=== PATIENT | female | born 1960 | race African-American/Black ===

== ENCOUNTER 2023-01-03 11:51 | Emergency (ER) | payer MEDICARE, MEDICAID, SELFPAY ==
--- NOTE | ~2023-01-03 | CT_ITS ---
EXAMINATION: CT brain wo con DATE: 01/03/2023 15:12 INDICATION: Left-sided numbness. Headache. TECHNIQUE: Computed tomography (CT) of the head was performed without intravenous contrast. The mA wa s adjusted according to patient size. Iterative reconstruction technique was employed. The dose-lengt h product was 605.33 mGy-cm. COMPARISON: None FINDINGS: There is no intracranial hemorrhage, acute infarction, or abnormal intracranial mass lesion . There is an empty sella. The ventricles are normal in size. The orbits are normal. There is mucosal thickening in the paranasal sinuses. The mastoid air cells are normal. IMPRESSION: 1. No specific etiology for the patient's symptoms. Reviewed, dictated and finalized at location A. [employer]
--- NOTE | 2023-01-03 11:57 | ECG_ITS ---
Measurements Intervals [place] Rate: 61 P: 43 AL: 127 QRS: -1 QRSD: 95 T: 58 QT: 382 QTc: 387 Interpretive Statements SINUS RHYTHM NORMAL ECG NO PREVIOUS ECG AVAILABLE FOR COMPARISON Electronically Signed On 01-03-2023 14:40:17 [employer] by Placido Mix M.D.
[2023-01-03 12:03] VITALS: BP 152/68; PULSE 62; RESP 18; TEMP 37.2; O2SAT 97
[2023-01-03 12:30] LABS: Basophils Absolute Auto 0.1 K/mm3 (0.0-0.1); Basophils Percent Auto 0.5 % (0.2-1.2); Eosinophils Absolute Auto 0.4 K/mm3 (0-0.3); Eosinophils Percent Auto 2.9 % (0-4.4); Hematocrit 45.3 % (37.0-47.0); Hemoglobin 14.7 g/dL (12.0-15.0); Immature Granulocyte Absolute 0.05 K/mm3 (0.00-0.031); Immature Granulocyte Percent A 0.4 % (0-0.5); Lymphocytes Absolute Auto 3.89 K/mm3 (0.9-3.2); Mean Corpuscular HGB Conc 32.5 g/dl (32-36); Mean Corpuscular Hemoglobin 28.3 pg (26-34); Mean Corpuscular Volume 87.1 fl (80-100); Mean Platelet Volume 11.4 fl (7.4-10.4); Monocytes Absolute Auto 0.8 K/mm3 (0.1-0.6); Monocytes Percent Auto 6.5 % (2.6-8.5); Neutrophils Percent Auto 57.7 % (45.5-73.1); Platelet Count Result 249 k/mm3 (150-375); Red Cell Distribution Width 14.6 % (11.5-14.5); White Blood Count 12.2 K/mm3 (4.5-10.0)
[2023-01-03 12:57] LABS: Alanine Aminotransferase 20 U/L (6-35); Albumin Level 4.4 g/dL (3.5-5.1); Alkaline Phosphatase 155 U/L (38-126); Anion Gap 7 mmol/L (8-16); Aspartate Amino Transferase 26 U/L (14-36); Bilirubin,Total 0.5 mg/dL (0.2-1.3); Blood Urea Nitrogen 14 mg/dL (7-17); Calcium 9.9 mg/dL (8.4-10.2); Carbon Dioxide 26 mmol/L (22-30); Chloride 105 mmol/L (98-107); Estimated CRCL calculation 68 ml/min; Estimated Glomerular Filt Rate > 60; Glucose 116 mg/dL (65-110); Potassium 3.7 mmol/L (3.4-5.0); Sodium 138 mmol/L (137-145)
--- NOTE | 2023-01-03 14:52 | ED.HA ---
HPI - Headache General Chief Complaint: Dizziness Stated Complaint: SCHULTZ, dizzy Time Seen by Provider: 01/03/23 14:33 History of Present Illness HPI Narrative: Is a 62-year-old female past history of hypertension and diabetes, who presents to the emergency department complaining of headache for the past 5 days. The pain is viselike and throbbing, exacerbated by bright lights and loud noises as well as lying flat. She complains of some left arm numbness for approximately the same time. She denies a recent change in medications or head trauma. Related Data Allergies Allergy/AdvReac Type Severity Reaction Status Date / Time No Known Allergies Allergy Verified 01/03/23 15:05 Review of Systems Review of Systems: CONSTITUTIONAL: Denies fever, chills, or sweats. EYES: Denies visual changes, redness, or discharge. ENT: Denies rhinorrhea, congestion, sore throat, or otalgia. CARDIOVASCULAR: Denies chest pain, palpitations, or edema. RESPIRATORY: Denies cough or dyspnea. GASTROINTESTINAL: Denies abdominal pain, nausea, vomiting, or diarrhea. GENITOURINARY: Denies dysuria or hematuria. SKIN: Denies rash or itching. MUSCULOSKELETAL: Denies back pain, joint pain, or myalgia. NEUROLOGIC: Headache and left arm numbness denies headache, numbness, dizziness, or weakness. PSYCHIATRIC: Denies anxiety or depression. [facility] Past Medical History Medical History (Updated 01/03/23 @ 14:54 by Aravind Irwin MD) Anxiety Diabetes mellitus Hypertension Social History Social History (Updated 01/03/23 @ 14:53 by Aravind Irwin MD) Smoking status: Never smoker Alcohol intake: never Substance use: never Exam Narrative: GENERAL: Well-appearing, well-nourished, and in no acute distress. HEAD: Normocephalic, atraumatic. EYES: PERRLA and EOMI. ENT: Nares clear, no rhinorrhea or epistaxis. Mucous membranes moist. Oropharynx without tonsillar hypertrophy exudate or other lesions. Bilateral TMs pearly wallis nonbulging NECK: Supple. No adenopathy or masses. No carotid bruits or JVD CHEST: Clear to auscultation. No respiratory distress. No wheezes rales or rhonchi HEART: Regular rate and rhythm. No murmur heard. Normal peripheral pulses. ABDOMEN: Soft, nontender, nondistended, normal active bowel sounds. EXTREMITIES: Normal range of motion. No edema. SKIN: Warm, dry, no rash. NEURO: No focal deficits. Alert and oriented x3. Strength 5/5 in all extremities. Sensation intact bilaterally, cranial nerves II through XII intact, no noted ataxia PSYCH: Normal mood and affect. Course Course Emergency Course: 14:53 - My initial NIH score is 0. Will obtain CT head to rule out mass versus bleeding and treat with migraine cocktail. 15:15 - On my review, there is no obvious bleed or mass on CT head. 15:25 - CT head negative by radiology interpretation. 16:27 - On reevaluation, the patient states her headache is nearly resolved. Discussed unremarkable CT findings. Discussed return and emergent precautions including signs/symptoms of intracranial hemorrhage. Will discharge home. Patient voiced understanding and is comfortable with the plan. All questions answered to her satisfaction. Vital Signs Vital signs: Vital Signs Temperature 99 F 01/03/23 12:03 Pulse Rate 62 01/03/23 12:03 Respiratory Rate 18 01/03/23 12:03 Blood Pressure 152/68 H 01/03/23 12:03 Pulse Oximetry 97 01/03/23 12:03 Oxygen Delivery Room Air 01/03/23 12:03 Temperature 99 F 01/03/23 12:03 Pulse Rate 58 L 01/03/23 16:55 Respiratory Rate 16 01/03/23 16:55 Blood Pressure 136/75 01/03/23 16:55 Pulse Oximetry 100 01/03/23 16:55 Oxygen Delivery Room Air 01/03/23 12:03 MDM - Headache MDM Narrative Medical decision making narrative: Plan: Imaging, pain control, reassess Differential Diagnosis Differential diagnosis: Likely migraine, tension headache, subarachnoid hemorrhage and other (Intracranial mass, other) Lab Data 01/03
[2023-01-03 15:04] VITALS: BP 121/62; PULSE 58; RESP 18; O2SAT 100
[2023-01-03 15:05] VITALS: PULSE 56
[2023-01-03] MEDS: SODIUM CHLORIDE 0.9% IV 1,000 ML 999 ML IV CONT (15:27)
[2023-01-03] MEDS: diphenhydrAMINE HCl INJ 50 MG/ML VIAL 25 MG IV PUSH (15:28)
[2023-01-03 15:30] VITALS: BP 144/63; PULSE 60; RESP 16; O2SAT 100
[2023-01-03] MEDS: PROCHLORPERAZINE EDISYLATE 10 MG/2 ML VIAL IM (15:30)
[2023-01-03 16:30] VITALS: BP 130/72; PULSE 57; RESP 16; O2SAT 100
[2023-01-03 16:55] VITALS: BP 136/75; PULSE 58; RESP 16; O2SAT 100
== END 2023-01-03 16:55 | disposition home or self-care (01) ==
PROVIDERS: Emergency Provider Preventive Medicine Aerospace Medicine
DX: R51.9 Headache, unspecified (principal); F41.9 Anxiety disorder, unspecified; E11.9 Type 2 diabetes mellitus without complications; I10 Essential (primary) hypertension
CPT/HCPCS: 36415; 70450; 80053; 85025; 93005; 96361; 96372; 96374; 96375; 99284; J0131; J0780; J1200; J7030